=== PATIENT | female | born 1975 | race African-American/Black ===

== ENCOUNTER 2022-01-06 15:32 | Emergency (ER) | payer MEDICAID, SELFPAY ==
[2022-01-06 15:46] VITALS: BP 134/88; PULSE 92; RESP 18; TEMP 36.6; O2SAT 98; BMI 44.6
[2022-01-06] MEDS: IPRAT-ALBUT 0.5-2.5 MG/3 ML NEB 1 NEB IH (16:52)
[2022-01-06 17:08] LABS: PCR FLU A POSITIVE PCR FLU A (Negative); PCR FLU B Negative PCR FLU B (Negative)
[2022-01-06 17:13] LABS: SARS PCR* Negative SARS-CoV-2 (Negative)
--- NOTE | 2022-01-06 17:32 | ED.GENADULT ---
HPI - General Adult General Date Seen: 01/06/22 Chief complaint: Shortness of Breath/Dyspnea Stated complaint: Shortness of Breath,Cough Time Seen by Provider: 01/06/22 16:06 Source: patient Mode of arrival: ambulatory Limitations: no limitations History of Present Illness HPI narrative: Patient is a 46-year-old female with history of asthma who presents with a two day history of headaches, body aches, fever. She has a continuous cough is keeping her awake at night. She has been using car son's albuterol. She has required prednisone in the past when she has asthma flares. She has not had a flu vaccine this year. She has recently moved [place] and does not have a local physician. No nausea, vomiting, diarrhea. Related Data Home Medications Medication Instructions Recorded Confirmed Wellbutrin 01/06/22 Previous Rx's Medication Instructions Recorded albuterol sulfate 90 mcg/actuation 2 puff inhalation Q4-6H PRN 01/06/22 aerosol inhaler shortness of breath or wheezing #8.5 grams codeine 10 mg-guaifenesin 100 mg/5 10 ml PO Q4-6H PRN #237 mL 01/06/22 mL oral liquid oseltamivir 75 mg capsule (Tamiflu) 75 mg PO BID 5 days #10 caps 01/06/22 prednisone 20 mg tablet 40 mg PO DAILY #10 tabs 01/06/22 Allergies Allergy/AdvReac Type Severity Reaction Status Date / Time acetaminophen [From [place]] Allergy Verified 01/06/22 15:49 adhesive tape Allergy Verified 01/06/22 15:49 hydrocodone [From [place]] Allergy Verified 01/06/22 15:49 oxycodone [From Percocet] Allergy Verified 01/06/22 15:49 Review of Systems Narrative: Review of systems is as outlined above otherwise noted to be negative. Exam Narrative: Exam Narrative: Vitals noted. She has a continuous cough with expiratory wheezes. HEENT: Conjunctiva clear. Tympanic membranes are pearly white bilaterally. Posterior pharynx is clear without erythema or exudate. Neck is supple without adenopathy, thyromegaly, carotid bruit. Lungs: Coarse and congested with expiratory wheezing. No localizing rales or rhonchi. Heart: Regular rate and rhythm without murmur. Abdomen: Soft and nontender. No guarding, rigidity, rebound. Bowel sounds are normal. No palpable masses. Extremities: No cyanosis or edema. Good distal pulses. Skin: No abnormalities noted of the exposed skin. Neurologic: Awake, alert, fully oriented. Neurologic exam is nonfocal. Const: Vital Signs, click to edit/add: Vital Signs - 24 hr 01/06/22 15:46 Temperature 97.8 F Pulse Rate [Right Pulse Oximeter] 92 Respiratory Rate 18 Blood Pressure [Ri ght Upper Arm] 134/88 Pulse Oximetry 98 Oxygen Delivery Me thod Room Air Course Course Hospital Course: Patient was seen and examined. Trouble swab was done which came back positive for influenza A. Her son is also being seen and he tested positive as well. She received a DuoNeb with some improvement in her wheezing. She was never hypoxic. We discussed options of using Tamiflu verses symptomatic treatment and she prefers to try the Tamiflu. She also needs a refill of her albuterol. Vital Signs Vital signs: Initial Vital Signs Temperature 97.8 F 01/06/22 15:46 Temperature Source Temporal Artery Scan 01/06/22 15:46 Pulse Rate 92 01/06/22 15:46 Respiratory Rate 18 01/06/22 15:46 Blood Pressure 134/88 01/06/22 15:46 Blood Pressure Mean 103 01/06/22 15:46 Blood Pressure Position Sitting 01/06/22 15:46 Pulse Oximetry 98 01/06/22 15:46 Oxygen Delivery Method 01/06/22 15:46 Vital Signs Temperature 97.8 F 01/06/22 15:46 Pulse Rate 92 01/06/22 15:46 Respiratory Rate 18 01/06/22 15:46 Blood Pressure 134/88 01/06/22 15:46 Pulse Oximetry 98 01/06/22 15:46 Oxygen Delivery Method 01/06/22 15:46 Temperature 97.8 F 01/06/22 15:46 Pulse Rate 92 01/06/22 15:46 Respiratory Rate 18 01/06/22 15:46 Blood Pressure 134/88 01/06/22 15:46 Pulse Oximetry 98 01/06/22 15:46 Oxygen Delivery Method 01/06/22 15:46 Medical Decision Making Lab Data Labs: Lab Results 01/06/22 Range/Units 16:20 SARS-CoV-2 (PCR) Negative SARS-CoV-2 (Negative) Influenza Type A (PCR) POSITIVE PCR FLU A A (Negative) Influenza Type B (PCR) Negative PCR FLU B (Negative) Discharge Plan Discharge Clinical Impression: Influenza A Patient Disposition: Home, Self-Care Condition: Improved Additional Instructions: Tamiflu 75 mg twice a day for five days. Tylenol or ibuprofen for pain and fever. I have refilled your albuterol inhaler. Prednisone 40 mg daily for five days. Follow-up if worsening or not improving over the next 5-7 days. Prescriptions: New oseltamivir [Tamiflu] 75 mg capsule 75 mg PO BID 5 Days Qty: 10 0RF codeine-guaifenesin 10-100 mg/5 mL liquid 10 ml PO Q4-6H PRNQty: 237 0RF prednisone 20 mg tablet 40 mg PO DAILY Qty: 10 0RF albuterol sulfate 90 mcg/actuation HFA aerosol inhaler 2 puff inhalation Q4-6H PRN (Reason: shortness of breath or wheezing) Qty: 8.5 0RF No Action Wellbutrin Follow Up/Referrals: Provider,Not a Local [Primary Care Provider] - Stand Alone Forms: [facility] Info Instructions
== END 2022-01-06 17:37 | disposition home or self-care (01) ==
PROVIDERS: Emergency Provider Family Medicine
DX: J10.1 Influenza due to other identified influenza virus with other respiratory manifestations (principal)
CPT/HCPCS: 87631; 94640; 99282; 99283